=== PATIENT | male | born 1970 | race Caucasian/White ===

== ENCOUNTER 2019-01-09 00:19 | Inpatient (IN) | payer BC ==
[~2019-01-09] VITALS: Ht 177.8 cm; Wt 102.1 kg
[2019-01-09 00:52] LABS: BASO % 0.6 % (0.0-2.0); EOS # 0.1 (0.0-0.7); EOS % 1.3 % (0-4.0); GRAN # 3.8 (1.4-6.5); GRAN % 57.1 % (42.2-75.2); HEMATOCRIT 44.2 % (42.0-52.0); HEMOGLOBIN 14.9 g/dl (13.5-18.0); LYMPH % 30.6 % (20.0-51.0); MEAN CELL VOLUME 91 fl (80.0-100.0); MEAN CORPUSCULAR HEMOGLOBIN 31 pg (27.0-31.0); MEAN CORPUSCULAR HGB CONC 34 g/dl (33.0-37.0); MEAN PLATELET VOLUME 9.4 fl (7.4-10.4); MONO # 0.7 (0.1-0.6); PLATELET COUNT 216 K/mm3 (130-400); RED BLOOD COUNT 4.86 M/mm3 (4.20-5.60); REDCELL DISTRIBUTION WIDTH-CV 11.8 % (11.5-14.5)
[2019-01-09 00:57] LABS: ALANINE AMINOTRANSFERASE 63 U/L (21-72); ALBUMIN 4.4 gm/dL (3.5-5.0); ALKALINE PHOSPHATASE 80 U/L (50-136); ANION GAP 9 mmol/L (7-16); AST,SGOT 40 U/L (15-37); BILIRUBIN,TOTAL 0.5 mg/dL (0.0-1.0); BLOOD UREA NITROGEN 15 mg/dL (9-20); CALCIUM 9.3 mg/dL (8.4-10.2); CARBON DIOXIDE 26 mmol/L (22-30); CHLORIDE 103 mmol/L (98-107); CREATININE, serum 0.99 (0.66-1.25); GLUCOSE 152 mg/dL (74-106); MAGNESIUM 1.8 mg/dL (1.6-2.3); POTASSIUM 3.4 mmol/L (3.4-5.0); SODIUM 138 mmol/L (137-145); TOTAL PROTEIN 7.5 gm/dL (6.4-8.2)
[2019-01-09 01:08] LABS: TROPONIN-I < 0.012 ng/mL (0.000-0.035)
[2019-01-09] MEDS ORDERED: MULTI VITAMINS1 TAB PO (01:21)
[2019-01-09 05:01] LABS: INR 0.9 (0.8-3.0); PROTHROMBIN TIME 9.9 SECONDS (9.7-12.8)
[2019-01-09 05:04] LABS: PARTIAL THROMBOPLASTIN TIME 30.6 SECONDS (26.0-37.0)
[2019-01-09 05:05] LABS: D-DIMER < 200.00 ng/mLDDu (200-230)
--- NOTE | 2019-01-09 07:33 | NUR ---
0645: PATIENT ARRIVED TO FLOOR FROM ER ACCOMPANIED BY . SETTLED IN ROOM. 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 DENIES C/O PAIN OR DISCOMFORT. [facility] ROUNDING ON PATIENT. REPORT GIVEN TO DAY SHIFT RN.
[2019-01-09 07:40] LABS: PHOSPHOROUS 2.4 mg/dL (2.5-4.5)
[2019-01-09 08:15] VITALS: BP 141/85; PULSE 91; TEMP 98.1
[2019-01-09 08:15] LABS: TROPONIN-I 6 HR POST INITIAL 0.199 ng/mL (0.000-0.034)
[2019-01-09 11:36] LABS: COLLECTION METHOD CLEAN CATCH
[2019-01-09 11:46] LABS: MUCOUS Present /lpf; PH 8 (5-8); SQUAMOUS EPITHELIAL None Seen /hpf; URINE APPEARANCE Clear; URINE BACTERIA None Seen /hpf; URINE BILIRUBIN Negative (NEGATIVE); URINE BLOOD Negative (NEGATIVE); URINE COLOR Yellow; URINE GLUCOSE Negative (NEGATIVE); URINE KETONE Negative (NEGATIVE); URINE LEUKOCYTE ESTERASE Negative (NEGATIVE); URINE NITRATE Negative (NEGATIVE); URINE PROTEIN(semi-quant) Negative (NEGATIVE); URINE RBC 0-2 /hpf; URINE UROBILINOGEN Negative (NEGATIVE)
[2019-01-09 11:58] LABS: TRICYCLIC ANTIDEPRESS URINE NEGATIVE
--- NOTE | 2019-01-09 11:58 | NUR ---
CLAUDIA met with the patient and the patient's friend, Lacey, to discuss discharge plan. The patient lives in [place] with his , Jaci (ph#[phone]), and their two children. He reports independence with ADLs and does not have any DME. The patient states that he was receiving primary care at [facility], but that his PCP is no longer there. He states that he would be open to getting set up with any new PCP there. CLAUDIA informed nurse practitioner, Zuly, of this. He receives his medications at [facility] and he reports no difficulties obtaining his meds. The patient does not have advanced directives in EMR, but he states that he does have them completed and at home. He states that his is his DPOA-HC. The patient plans to return home with his family upon discharge. No additional needs at this time.
--- NOTE | 2019-01-09 12:25 | NUR ---
First visit from the material handling supervisor. No needs right now.
[2019-01-09 12:39] VITALS: BP 141/91; PULSE 89; TEMP 98.8
[2019-01-09 16:32] VITALS: BP 126/75; PULSE 98; TEMP 98.1
--- NOTE | 2019-01-09 18:57 | NUR ---
Patient resting in bed. A&Ox4. Denies pain and discomfort. IV CDI, fluids infusing. No reported chest pain or SOB. Patient NPO at midnight for procedure 01/10. No further needs expressed from patient. Call light within reach
[2019-01-09 19:35] VITALS: BP 134/90; PULSE 82; TEMP 98.8
[2019-01-09 23:21] VITALS: BP 112/79; PULSE 86
[2019-01-10] VITALS (7 sets, daily range): BP systolic 109–141; BP diastolic 19–82; PULSE 73–90; TEMP 98
[2019-01-10 06:33] LABS: BASO % 0.6 % (0.0-2.0); EOS # 0.1 (0.0-0.7); EOS % 2.6 % (0-4.0); GRAN # 3.3 (1.4-6.5); GRAN % 61.7 % (42.2-75.2); HEMOGLOBIN 13.8 g/dl (13.5-18.0); LYMPH # 1.3 (1.2-3.4); LYMPH % 23.9 % (20.0-51.0); MEAN CELL VOLUME 93 fl (80.0-100.0); MEAN CORPUSCULAR HEMOGLOBIN 31 pg (27.0-31.0); MEAN CORPUSCULAR HGB CONC 34 g/dl (33.0-37.0); MEAN PLATELET VOLUME 9.5 fl (7.4-10.4); MONO # 0.6 (0.1-0.6); MONO % 10.8 % (1.7-9.3); PLATELET COUNT 188 K/mm3 (130-400); RED BLOOD COUNT 4.42 M/mm3 (4.20-5.60); REDCELL DISTRIBUTION WIDTH-CV 11.9 % (11.5-14.5)
[2019-01-10 06:47] LABS: ALBUMIN 3.5 gm/dL (3.5-5.0); BILIRUBIN,TOTAL 0.4 mg/dL (0.0-1.0); CALCIUM 8.6 mg/dL (8.4-10.2); CREATININE, serum 0.84 (0.66-1.25); POTASSIUM 4.2 mmol/L (3.4-5.0); TOTAL PROTEIN 6.2 gm/dL (6.4-8.2)
--- NOTE | 2019-01-10 08:18 | NUR ---
Assessment completed, alert/oriented, vital signs stable, denies any chest pain or disoccomfort/ palpitations, heart RRR, SR on tele, distal pulses are palpable, denies any resp.difficulty and lungs are CTA, he is scheduled for heart cath around 1130 and has signed consent and has been kept NPO, present in the room, I have answered all their question and they deny other needs or concerns at this time
--- NOTE | 2019-01-10 10:30 | NUR ---
SEE MERGE FOR MEDICATION TIMES AND INTRA AND POST SEDATION ASSESSMENTS
--- NOTE | 2019-01-10 11:41 | NUR ---
TRANSPORTED TO ROOM 316, BEDSIDE REPORT TO JULIANO. HEMOSTASIS MAINTAINED TO RIGHT RADIAL ACCESS SITE. 2+ RADIAL PULSE, CAP REFILL LESS THAN 2 SEC
--- NOTE | 2019-01-10 11:46 | NUR ---
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
--- NOTE | 2019-01-10 11:50 | NUR ---
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
--- NOTE | 2019-01-10 13:05 | NUR ---
continues to do well post heart cath, vital signs stable, he is eating an drinking, puncture access site looks good/ TR band in place and i will begin to deflate and monitor starting at 1315
--- NOTE | 2019-01-10 13:53 | NUR ---
TR band delfated, no bleeding or oozing noted, VSS, plan for discharge home
--- NOTE | 2019-01-10 15:27 | NUR ---
Patient discharge instructions reviewed, instructed to follow up with Cardiology and PCP as we have scheduled, instructed to monitor right radial access puncutre site for bleedin/oozing/hematoma, IV and tele removed, he is leaving with his , I personally escorted him out the door
== END 2019-01-10 15:47 | disposition home or self-care (01) | DRG 282 ==
LOC: COL.ER 00:19 → MEDICAL 04:46
PROVIDERS: Emergency Medicine; Nurse Practitioner Family
PROC: 4A023N7 Measurement of Cardiac Sampling and Pressure, Left Heart, Percutaneous Approach (ICD-10-PCS; principal; 2019-01-10)
PROC: B2111ZZ Fluoroscopy of Multiple Coronary Arteries using Low Osmolar Contrast (ICD-10-PCS; 2019-01-10)
DX: I21.4 Non-ST elevation (NSTEMI) myocardial infarction (principal); R00.0 Tachycardia, unspecified; E87.6 Hypokalemia; Z88.0 Allergy status to penicillin
CPT/HCPCS: 99222-AI; 99239; J1644; J1650; J2250; J3010; J3475; J3480; J7030